=== PATIENT | female | born 1975 | race Caucasian/White ===

== ENCOUNTER 2020-05-30 09:09 | Emergency (ER) | payer BC, OTHER ==
[~2020-05-30] VITALS: Ht 157.5 cm; Wt 66.0 kg
[~2020-05-30 09:09] MED LIST: ALPR0.5T7 PO; EMERGEN C PO; GOLD1CAP5 PO; HYDR1TAB13 PO; KAVA KAVA PO; LACT1CAP4 PO; MULT-257 PO; VITA1CAP PO; [UNRECOGNIZED DRUG - OTHER] PO; astragalus PO; vitamin d PO
[2020-05-30 10:35] LABS: BASOPHILS % (AUTO) 1 % (0-1); EOSINOPHILS % (AUTO) 0 % (1-7); LYMPHOCYTES % (AUTO) 17 % (22-44); MEAN CORPUSCULAR HEMOGLOBIN 31.9 pg (27.0-34.8); MEAN CORPUSCULAR HGB CONC 34.4 g/dL (32.4-35.8); MEAN PLATELET VOLUME 8.3 fL (7.4-10.4); MONOCYTES % (AUTO) 6 % (2-9); NEUTROPHILS % (AUTO) 77 % (42-75); PLATELET COUNT 288 x10^3/uL (130-400); RED BLOOD COUNT 4.59 x10^6/uL (3.82-5.3); RED CELL DISTRIBUTION WIDTH 12.7 % (9.6-15.2)
[2020-05-30 10:36] LABS: MD NO
[2020-05-30 10:41] LABS: ALANINE AMINOTRANSFERASE 22 U/L (12-78); ALBUMIN 4.2 g/dL (3.4-5.0); ANION GAP 7 mmol/L (5-15); CALCIUM 9.3 mg/dL (8.5-10.1); CHLORIDE 106 mmol/L (98-107); CREATININE 0.72 mg/dL (0.55-1.02)
[2020-05-30 10:45] LABS: ALKALINE PHOSPHATASE 60 U/L (45-117); BILIRUBIN,TOTAL 0.5 mg/dL (0.2-1.0); TOTAL PROTEIN 7.8 g/dL (6.4-8.2)
--- NOTE | 2020-05-30 10:53 | NUR ---
LATE ENTRY (1000): PT AMBULATED TO BR. UPRIGHT/STEADY GAIT. PT RETURNED FROM BR WITHOUT INCIDENT. PT PLACED ON MONITORS. NO NEEDS AT THIS TIME.
[2020-05-30 10:57] LABS: MICROSCOPIC INDICATED
[2020-05-30 11:35] VITALS: BP 141/75
--- NOTE | 2020-05-30 12:15 | NUR ---
Patient given discharge instructions and they have confirmed that they understand the instructions. Patient ambulatory with steady gait.
== END 2020-05-30 12:16 | disposition home or self-care (01) ==
LOC: ED 10:18
DX: F41.1 Generalized anxiety disorder (principal); R42 Dizziness and giddiness; R06.02 Shortness of breath; R94.31 Abnormal electrocardiogram [ECG] [EKG]; R07.89 Other chest pain; R11.2 Nausea with vomiting, unspecified; R51.9 Headache, unspecified; Z86.73 Personal history of transient ischemic attack (TIA), and cerebral infarction without residual deficits
CPT/HCPCS: 36415; 71045; 80053; 81001; 84703; 85025; 87086; 93005; 99285